=== PATIENT | female | born 1945 | race Caucasian/White ===

== ENCOUNTER 2017-12-06 18:28 | Inpatient (IN) | END 2017-12-11 16:21 | disposition home or self-care (01) | DRG 641 ==

== ENCOUNTER 2018-12-24 05:22 | Day surgery (SDC) | payer OTHER ==
[2018-12-24] VITALS (12 sets, daily range): BP systolic 110–141; BP diastolic 49–67; PULSE 66–93; RESP 16–18
[~2018-12-24] VITALS: Ht 152.4 cm; Wt 87.8 kg
[~2018-12-24 05:22] MED LIST: AMLO-147 PO; CALC0.255 PO; CALC667C PO; CARV12.579 PO; CHOL500010 PO; LEVO88TA42 PO; LOSA25TA12 PO
[2018-12-24] MEDS ORDERED: MOXIFLOXACIN 0.5% 3 ML OPH OPER ONE (06:00)
[2018-12-24] MEDS ORDERED: CYCLOPENTOLATE 2% 2 ML OPH OPER SCH (06:00)
[2018-12-24] MEDS ORDERED: NEPAFENAC 0.1% 3 ML OPH OPER SCH (06:00)
[2018-12-24] MEDS ORDERED: MOXIFLOXACIN 0.5% 3 ML OPH OPER SCH (06:00)
[2018-12-24] MEDS ORDERED: PHENYLephrine 10% 5 ML OPH OPER SCH (06:00)
[2018-12-24] MEDS ORDERED: LIDOCAINE 1% (MPF) 10 ML INJ ONE (06:36)
[2018-12-24] MEDS ORDERED: EPINEPHrine 1 MG INJ ONE (06:36)
[2018-12-24] MEDS ORDERED: TIMOLOL MALEATE/PF 0.5% OCCUDOSE (0.3 ML) ONE (06:36)
--- NOTE | 2018-12-24 06:51 | HPN ---
Date/Time of Note Date/Time of Note DATE: 12/24/18 TIME: 06:50 Interval H&P Admission Note Pt. seen H&P reviewed: No system changes TOMY MURILLO MD Dec 24, 2018 06:51
[2018-12-24] MEDS ORDERED: NA BICARB 50 MEQ/50 ML VIAL ONE (06:53)
[2018-12-24] MEDS ORDERED: LIDOCAINE 2% (SDV) 5 ML INJ ONE ×2 (06:54→07:54)
[2018-12-24] MEDS ORDERED: LIDOCAINE 1% (MPF) 10 ML INJ INJ ONE (07:15)
--- NOTE | 2018-12-24 07:18 | PREAC ---
Date/Time of Note Date/Time of Note DATE: 12/24/18 TIME: 07:16 Anesthesia Eval and Record Evaluation Time Pre-Procedure Interview DATE: 12/24/18 TIME: 07:16 Age 73 Sex female NPO: 8 hrs Preoperative diagnosis right Cataract Planned procedure right CE with IOL implant Past Medical History Past Medical History: Includes Cardio: HTN Endo: Hypothyroid Surgery & Anesthesia Issues No known issue Meds Anticoagulation: No Beta [place] within 24 hr: Yes Reported Medications Cholecalciferol (Vitamin D3) 5,000 Unit Tablet, 5000 UNIT PO DAILY, TAB 05/26/18 Carvedilol* (Carvedilol*) 12.5 Mg Tablet, 12.5 MG PO BID, #60 TAB 05/26/18 Amlodipine Besylate* (Amlodipine Besylate*) 10 Mg Tablet, 10 MG PO DAILY, #30 TAB 05/26/18 Calcitriol* (Rocaltrol*) 0.25 Mcg Capsule, 0.25 MCG PO DAILY, CAP 05/26/18 Calcium Acetate* (Calcium Acetate*) 667 Mg Capsule, 667 MG PO WITH MEALS, #30 CAP 05/26/18 Losartan Potassium* (Losartan Potassium*) 25 Mg Tablet, 25 MG PO DAILY, TAB 05/26/18 Levothyroxine Sodium* (Levoxyl*) 88 Mcg Tablet, 88 MCG PO BEFORE BREAKFAST, #30 TAB 05/26/18 Current Medications Cyclopentolate HCl (Cyclogyl 2% Oph) 1 drop Q5 MIN X 3 OPER Last administered on 12/24/18at 06:11; Admin Dose 1 DROP; Start 12/24/18 at 06:00 Phenylephrine HCl (Ak-Dilate 10%) 1 drop Q5 MIN X3 OPER Last administered on 12/24/18at 06:12; Admin Dose 1 DROP; Start 12/24/18 at 06:00 Nepafenac ([place] Oph) 1 drop Q5 MIN X3 OPER Last administered on 12/24/18at 06:12; Admin Dose 1 DROP; Start 12/24/18 at 06:00 Moxifloxacin HCl (Vigamox) 1 drop ONCE OPER Last administered on 12/24/18at 06:11; Admin Dose 1 DROP; Start 12/24/18 at 06:00; Stop 12/24/18 at 17:00 Meds reviewed: Yes Allergies Coded Allergies: No Known Allergy (Unverified , 05/26/18) Allergies Reviewed: Yes Labs/Studies Labs Reviewed: Reviewed by anesthesiologist test: N/A Studies: ECG Pre-procedure Exam Last vitals Vital Signs Date Temp Pulse Resp B/P (MAP) Pulse Ox O2 O2 Flow FiO2 Time Delivery Rate 12/24/18 98.2 93 18 140/64 92 Room Air 06:21 (89) Airway: Adequate mouth opening, Adequate thyromental dist Mallampati: Mallampati II Teeth: Normal (upper edentulous) Lung: Normal Heart: Normal ASA Physical Status ASA physical status: 2 Emergency: None Pre-operative Attestations Prior to commencing anesthesia and surgery, the patient was re-evaluated, there was verification of: *The patient's identity *The results of appropriate recent lab work and preoperative vital signs *The above evaluation not changing prior to induction *Anesthetic plan, risk benefits, alternative and complications discussed with patient/family; questions answered; patient/family understands, accepts and wish es to proceed. [facility] ANTO[facility] PHYSICS DEPARTMENT CHAIR Dec 24, 2018 07:18
[2018-12-24] MEDS ORDERED: LEVO112T42 PO (07:25)
[2018-12-24] MEDS ORDERED: FER325 PO (07:25)
[2018-12-24] MEDS ORDERED: MIDAZOLAM 1 MG/ML 2 ML INJ ONE (07:33)
[2018-12-24] MEDS ORDERED: FENTAnyl 50 MCG/ML VIAL ONE (07:34)
[2018-12-24] MEDS ORDERED: PROPOFOL 20 ML ONE (07:54)
[2018-12-24] MEDS ORDERED: CARBACHOL 0.01% 1.5 ML OPH INJ RIGHT EYE ONE (08:07)
[2018-12-24] MEDS ORDERED: TIMOLOL 0.5% 5 ML OPH RIGHT EYE ONE (08:08)
--- NOTE | 2018-12-24 08:18 | PAC ---
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
[2018-12-24] MEDS ORDERED: FENTAnyl 50 MCG/ML VIAL IV PRN (08:30)
[2018-12-24] MEDS ORDERED: HYDROmorphONE 1 MG/5 ML IV SYRINGE IV PRN (08:30)
[2018-12-24] MEDS ORDERED: OXYCODONE/ACETAMINOPHEN (5/325) TAB PO PRN (08:30)
[2018-12-24] MEDS ORDERED: LABETALOL HCL 20MG INJ IV PRN (08:30)
[2018-12-24] MEDS ORDERED: ONDANSETRON 4 MG INJ IV PRN (08:30)
--- NOTE | 2018-12-24 14:19 | OPR ---
DATE OF OPERATION: 12/24/2018 SURGEON: Tomy Grant MD PHYSICAL THERAPY ASSISTANT INSTRUCTOR: None. ANESTHESIOLOGIST: ____ PREOPERATIVE DIAGNOSIS: Senile nuclear sclerotic cataract right eye. POSTOPERATIVE DIAGNOSIS: Senile nuclear sclerotic cataract, right eye. OPERATION: Kelman phacoemulsification with implantation of intraocular lens right eye. DESCRIPTION OF PROCEDURE: Following standard preparation and draping of the patient, a lid speculum was placed for immobilization of the lids. A SuperBlade incision was made at the corneal limbal junc tion for access into the anterior chamber. Approximately 0.03 mL of nonpreserved 1% Xylocaine was in stilled into the anterior chamber, and after approximately 5 to 10 seconds, this was replaced with Vi scoat. A clear corneal incision was then made using the 3.2 mm keratome, following which an anterior circular capsulorrhexis was made. The major portion of the lens cortex and nucleus were then disloc ated from the capsular bag using hydrodissection. The KPE tip was introduced into the eye and contro lling tumbling of the lens with a 2-handed technique, the major portion of the lens cortex and nucleu s was removed, maintaining the lens in the plane of the iris. The remaining cortical material was re moved via the irrigating aspirating instrument. The capsular bag and the anterior chamber were now r eformed using Viscoat. The proper power lens was then placed in the capsular bag. The viscoelastic was then removed from the eye and the eye reformed with balanced salt solution. One 10-0 Vicryl sutu re was then used to ensure closure of the corneal incision. The eye was reformed to normal pressure using balanced salt solution. The eye and cul-de-sacs were now simply flooded with 5% Betadine solut ion. One drop of Vigamox and 1 drop of Betagan solution were instilled into the eye. A light pressu re dressing was applied, and the patient was returned to the recovery room in satisfactory condition. Dictated By: TOMY MTZ/KATHY Conf#: [id number] DID#: [id number]
== END 2018-12-24 09:37 | disposition home or self-care (01) ==
LOC: SDS 05:22
PROVIDERS: ATTEND Ophthalmology
DX: H25.11 Age-related nuclear cataract, right eye (principal); I10 Essential (primary) hypertension; E03.9 Hypothyroidism, unspecified
CPT/HCPCS: 66984; J0171; J2250; J3010; V2632; Z7512; Z7610